=== PATIENT | female | born 1950 | race Caucasian/White ===

== ENCOUNTER 2023-07-27 06:21 | Emergency (ER) | payer OTHER ==
[~2023-07-27] VITALS: Ht 165.1 cm; Wt 121.0 kg
[~2023-07-27 06:21] MED LIST: AMIODARONE HYD200 MG PO; DECADRON6 M1 PO; ELIQUIS5 M1 PO; LASIX40 MG PO; MECLIZINE HCL25 M2 PO; METOPROLOL SUCC50 M1 PO; OMEPRAZOLE40 MG PO; PAIN RELIEVER650 MG PO; PANTOPRAZOLE SO40 MG PO; POTASSIUM CHLO20 ME3 PO; POTASSIUM CHLO20 ME4 PO; ZOLOFT100 MG PO
[2023-07-27] MEDS ORDERED: SODIUM CHLORIDE 0.9% 1,000 ML IV ONE (07:00)
[2023-07-27 07:10] LABS: BASO # 0.1 10*3/uL (0.0-0.1); BASO % 0.7 % (0.0-1.0); EOS # 0.1 10*3/uL (0.0-0.4); EOS % 1.2 % (1.0-4.0); HEMATOCRIT 42.4 % (37.0-47.0); LYMPH # 0.9 10*3/uL (1.3-4.4); LYMPH % 10.3 % (27.0-41.0); MEAN CELL VOLUME 101.7 fl (81.0-99.0); MEAN CORPUSCULAR HGB 33.6 pg (27.0-31.0); MEAN PLATELET VOLUME 10.1 fl (9.6-12.3); MONO # 0.7 10*3/uL (0.1-1.0); MONO % 8.6 % (3.0-9.0); NEUT # 6.6 10*3/uL (2.3-7.9); PLATELET COUNT AUTOMATED 143 10*3/uL (130-400); RED BLOOD COUNT 4.17 10*6/uL (4.10-5.10); RED CELL DISTRI WIDTH 12.9 % (0-14.5); WHITE BLOOD COUNT 8.4 10*3/uL (4.8-10.8)
[2023-07-27 07:27] LABS: BUN 16 mg/dl (9-23); CHLORIDE 107 mmol/L (98-107); LIPASE 28 U/L (12-53); POTASSIUM 3.7 mmol/L (3.4-5.1)
[2023-07-27] MEDS ORDERED: IOHEXOL 300 MG/ML 100 ML VIAL ONE (07:59)
[2023-07-27] MEDS ORDERED: IOHEXOL 300 MG/ML 100 ML VIAL IV ONE (08:15)
[2023-07-27] MEDS ORDERED: MORPHINE Sulfate 2 MG/ML SYR IV ONE (08:20)
[2023-07-27] MEDS ORDERED: Ondansetron Hydrochloride 4 MG/2 ML VIAL IV ONE (08:20)
[2023-07-27] MEDS ORDERED: Piperacillin Sodium/Tazobact 50 ML IV ONE (09:20)
[2023-07-27] MEDS ORDERED: COLACE 2-IN-11 EACH PO (09:22)
[2023-07-27] MEDS ORDERED: HYDROCODONE-AC1 EAC1 PO (09:22)
[2023-07-27] MEDS ORDERED: AMOX-CLAV 875-1 EACH PO (09:22)
[2023-07-31] MEDS ORDERED: CIPRO500 MG PO (14:28)
[2023-07-31] MEDS ORDERED: METRONIDAZOLE500 M1 PO (14:28)
[2023-07-31] MEDS ORDERED: XIFAXAN550 MG PO (14:28)
== END 2023-07-27 10:17 | disposition home or self-care (01) ==
LOC: ED 06:21
PROVIDERS: Internal Medicine
DX: K52.9 Noninfective gastroenteritis and colitis, unspecified (principal); K59.00 Constipation, unspecified; K62.89 Other specified diseases of anus and rectum; R11.2 Nausea with vomiting, unspecified; I10 Essential (primary) hypertension; J44.9 Chronic obstructive pulmonary disease, unspecified; E11.9 Type 2 diabetes mellitus without complications; I25.10 Atherosclerotic heart disease of native coronary artery without angina pectoris; I25.2 Old myocardial infarction; Z88.2 Allergy status to sulfonamides; Z88.8 Allergy status to other drugs, medicaments and biological substances; Z98.890 Other specified postprocedural states; Z87.891 Personal history of nicotine dependence